=== PATIENT | male | born 1975 | race Caucasian/White ===

== ENCOUNTER 2017-01-28 17:32 | Emergency (ER) | payer OTHER ==
--- NOTE | 2017-01-28 17:38 | PDOC ---
History of Present Illness - History of Present Illness Initial Comments: 01/28/17 18:35 Chief complaint: chest pain for a week The patient is a 41 year old male with a past medical history of acid reflux, presents to the emergency department with a complaint of one week of chest pain. Keny reports he had an episode of chest pain a month ago but it resolved on its own. The pain over the past week has returned. The pain is intermittent. Patients pain is on the left side of the chest. The pain is reported to be mild, lasting for seconds. Patient additionally reports the pain left arm with numbness/tingling . Patient denies associated shortness of breath or diaphoresis. Deneis any nausea or vomiting. Denies abdominal pain. Patient reports some life stressors Social drinker, denies recreational drugs Denies past hospitalizations or surgeries Cardiac risks: 2/5 Denies history of hypertension, high cholesterol or diabetes. Patient reports social smoking, binging on 6-8 cigarettes 2 days a week Patient's brother is 46 and has a history of cardiac stents <Jake Hewitt - Last Filed: 01/28/17 18:35> <Sg Priest - Last Filed: 01/28/17 19:44> - General Chief Complaint: Chest Pain Stated Complaint: chest pain x 1 week Time Seen by Provider: 01/28/17 17:36 Past History <Jake Hewitt - Last Filed: 01/28/17 18:35> - Psycho/Social/Smoking Cessation Hx Anxiety: No Suicidal Ideation: No Smoking History: Current some day smoker Have you smoked in the past 12 months: Yes 'Breaking Loose' booklet given: 08/15/16 Hx Alcohol Use: Yes Drug/Substance Use Hx: No Substance Use Type: Alcohol <Sg Priest - Last Filed: 01/28/17 19:44> - Past Medical History Allergies/Adverse Reactions: Allergies Allergy/AdvReac Type Severity Reaction Status Date / Time No Known Allergies Allergy Verified 01/28/17 17:33 Home Medications: Ambulatory Orders NK [No Known Home Medication] 08/14/16 Review of Systems - Review of Systems Able to Perform ROS?: Yes Comments:: 01/28/17 18:35 CONSTITUTIONAL: Absent: Fever, Chills, Diaphoresis, Generalized Weakness, Malaise, Loss of Appetite HEENT: Absent: Rhinorrhea, Nasal Congestion, Throat Pain, Throat Swelling, Difficulty Swallowing, Mouth Swelling, Ear Pain, Eye Pain, Visual Changes CARDIOVASCULAR: Present: Chest pain Absent: Syncope, Palpitations, Irregular Heart Rate, Lightheadedness, Peripheral Edema RESPIRATORY: Absent: Cough, Shortness of Breath, SOB with Exertion, Orthopnea, Wheezing, Stridor, Hemoptysis GASTROINTESTINAL: Absent: Abdominal pain, Abdominal Distension, Nausea, Vomiting, Diarrhea, Constipation, Melena, Hematochezia GENITOURINARY: Absent: Dysuria, Frequency, Urgency, Hesitancy, Flank Pain, Genital Pain MUSCULOSKELETAL: Absent: Myalgia, Arthralgia, Joint Swelling, Back pain, Neck Pain SKIN: Absent: Rash, Itching, PalloR HEMEATOLOGIC/IMMUNOLOGIC: Absent: Easy Bleeding, Easy Bruising, Lymphadenopathy, Frequent infections ENDOCRINE: Absent: Unexplained Weight Gain, Unexplained Weight Loss, Heat Intolerance, Cold Intolerance NEUROLOGIC: Present: Left arm tingling Absent: Headache, Focal Weakness, Vertigo, Lightheadedness, Unsteady Gait, Seizure, Mental Status Changes, Incontinence PSYCHIATRIC: Absent: Anxiety, Depression Is the patient limited Georgian proficient: No <Jake Hewitt - Last Filed: 01/28/17 18:35> *Physical Exam - Vital Signs Last Vital Signs Temp Pulse Resp BP Pulse Ox 97.9 F 70 18 120/68 100 01/28/17 17:32 01/28/17 17:32 01/28/17 17:32 01/28/17 17:32 01/28/17 17:32 - Physical Exam Comments: 01/28/17 18:36 GENERAL: The patient is awake, alert, and fully oriented, in no acute distress. HEAD: Normal with no signs of trauma. EYES: Pupils equal, round and reactive to light, extraocular movements intact, sclera anicteric, conjunctiva clear. ENT: Ears normal, nares patent, oropharynx clear without exudates. Moist mucous membranes. NECK: Normal range of motion, supple without lymphadenopathy, JVD, or masses. LUNGS: Breath sounds equal, clear to auscultation bilaterally. No wheezes, and no crackles. HEART: Regular rate and rhythm, normal S1 and S2 without murmur, rub or gallop. ABDOMEN: Soft, nontender, normoactive bowel sounds. No guarding, no rebound. No masses. EXTREMITIES: Normal range of motion, no edema. No clubbing or cyanosis. No cords , erythema, or tenderness. NEUROLOGICAL: Cranial nerves II through XII grossly intact. Normal speech, normal gait. PSYCH: Normal mood, normal affect. SKIN: Warm, Dry, normal turgor, no rashes or lesions noted. <Jake Hewitt - Last Filed: 01/28/17 18:35> Heart Score/ECG Review - ECG Intrepretation Comment:: 01/28/17 19:39 Twelve-lead EKG reviewed by me. The rhythm is normal sinus rhythm at 69 bpm. The axis is normal. The intervals are normal. There is borderline LVH by voltage. There is T wave flattening in lead aVL. There are no old EKGs for comparison. Impression: Normal sinus rhythm with borderline LVH with lateral T-wave flattening. <Sg Priest - Last Filed: 01/28/17 19:44> ED Treatment Course - LABORATORY CBC & Chemistry Diagram: 01/28/17 18:45 01/28/17 18:45 <Sg Pirest - Last Filed: 01/28/17 19:44> Medical Decision Making - Medical Decision Making 01/28/17 19:40 Patient is a 41-year-old man with a history of smoking and early-onset coronary disease in the family. He does not have hypertension, hyperlipidemia, or diabetes. He presents complaining of intermittent, brief episodes of mild chest discomfort lasting for seconds. He also says that he sometimes feels some numbness in his left arm. The symptoms are not exertional. They do not last for any more than seconds. There is no nausea or vomiting. There is no diaphoresis. There is no shortness of breath. On examination, the lungs are clear and the heart is normal. Twelve-lead EKG shows borderline LVH with T-wave flattening in lead aVL. There are no old old EKGs for comparison. Chest x-ray on my preliminary review is normal. Initial impression: Very atypical chest pain, but in a patient with positive coronary risk factors. He denies cocaine abuse or exertional symptoms. Laboratory studies ordered. If cardiac enzymes remain negative, patient can be discharged with cardiology follow-up for stress testing. Patient has a heart score of 2 points, putting him in the low risk category. Patient endorsed to Dr. Ambrosio Lee at change of shift pending cardiac enzymes. Plan is to discharge the patient if his enzymes are all normal , With outpatient follow-up. Laboratory Tests 01/28/17 18:45 WBC 9.4 RBC 5.33 Hgb 15.9 Hct 47.2 MCV 88.4 MCHC 33.7 RDW 12.8 Plt Count 272 MPV 7.7 Neutrophils % 55.1 Lymphocytes % 32.8 Monocytes % 5.4 Eosinophils % 5.9 H Basophils % 0.8 CBC is normal. Other labs are pending at the time of signout. <Sg Priest - Last Filed: 01/28/17 19:44> *DC/Admit/Observation/Transfer - Attestations Scribe Attestion: 01/28/17 18:36 Documentation prepared by Jake Hewitt, acting as medical technical writer for Sg Priest MD <Jake Hewitt - Last Filed: 01/28/17 18:35> <Sg Priest - Last Filed: 01/28/17 19:44> Diagnosis at time of Disposition: Atypical chest pain - Discharge Dispostion Condition at time of disposition: Stable
[2017-01-28 17:40] VITALS: BP 120/68; PULSE 70; TEMP 97.9; BMI 29.0
[2017-01-28 19:08] LABS: BASOPHIL 0.8 % (0-2.0); EOSINOPHIL 5.9 % (0-4.5); MCH 29.8 pg (25.7-33.7); MCHC 33.7 g/dl (32.0-35.9); MEAN CELL VOLUME 88.4 fl (80-96); MEAN PLT VOLUME 7.7 fl (7.5-11.1); NEUTROPHILS 55.1 % (42.8-82.8); PLATELET COUNT 272 K/MM3 (134-434); RDW 12.8 % (11.9-15.9); WHITE BLOOD COUNT 9.4 K/mm3 (4.0-10.8)
[2017-01-28 19:27] LABS: ALBUMIN 4.3 g/dl (3.5-5.0); ALK PHOS 58 U/L (32-92); ANION GAP 7 (8-16); BILIRUBIN,TOTAL 0.4 mg/dl (0.2-1.0); CALCIUM 9.4 mg/dl (8.4-10.2); CO2 27 mmol/L (22-28); COCKROFT - GAULT 112.82; CREATININE 1.1 mg/dl (0.6-1.3); GLUCOSE,RANDOM 89 mg/dl (74-106); SGOT/AST 23 U/L (10-42); SGPT/ALT 21 U/L (10-40); TOT PROT 7.2 g/dl (6.4-8.3)
[2017-01-28 19:28] LABS: CPK(DFH) 97 IU/L (38-174)
--- NOTE | 2017-01-28 19:52 | PDOC ---
*Physical Exam - Vital Signs Last Vital Signs Temp Pulse Resp BP Pulse Ox 97.9 F 70 18 120/68 100 01/28/17 17:32 01/28/17 17:32 01/28/17 17:32 01/28/17 17:32 01/28/17 17:32 ED Treatment Course - LABORATORY CBC & Chemistry Diagram: 01/28/17 18:45 01/28/17 18:45 - ADDITIONAL ORDERS Additional order review: 01/28/17 18:45 RBC 5.33 MCV 88.4 MCHC 33.7 RDW 12.8 MPV 7.7 Neutrophils % 55.1 Lymphocytes % 32.8 Monocytes % 5.4 Eosinophils % 5.9 H Basophils % 0.8 Progress Note - Progress Note Progress Note: Care of this patient was transferring from Dr. Mendez at 1900 hrs. Patient comes in complaining of very atypical chest pain. Patient does have multiple risk factors including a strong family history of coronary artery disease at a young age. Patient has an initial cardiac enzymes are pending. Plan is that we will repeat cardiac enzymes in 3 hours and if still negative patient will be discharged. Patient will also have a repeat EKG at the time of the second set of enzymes. 20:15 Patient's troponin and workup was negative. Patient's heart score is 2. Patient does not want to wait for second cardiac enzymes. So he is signing out AGAINST MEDICAL ADVICE. Patient understands the risk obvious small but this could be cardiac related and could result in an adverse outcome such as a heart attack or even . Patient understands and will follow-up with his primary care next week. *DC/Admit/Observation/Transfer Diagnosis at time of Disposition: Atypical chest pain - Discharge Dispostion Disposition: HOME Condition at time of disposition: Stable Admit: No - Referrals Referrals: Vasyl Falcon [Non Staff, Medical] - - Patient Instructions Printed Discharge Instructions: DI for Atypical Chest Pain Additional Instructions: Your signing out AGAINST MEDICAL ADVICE, by signing out AGAINST MEDICAL ADVICE you accept the risk of the result of any potential adverse outcome such as a heart attack or . It is important that you follow-up with your doctor tomorrow and return if you have any worsening symptoms or for any reason whatsoever. Return to the emergency department immediately with ANY new, persistent or worsening symptoms. Continue any medications as previously prescribed by your physician. You should follow up with your primary doctor as soon as possible regarding today's emergency department visit. . Please make sure your doctor reviews the results of your emergency evaluation. Thank you for coming to the Emergency Department today for your care. It was a pleasure to see you today. Please note that your evaluation is INCOMPLETE until you follow-up with your doctor.
[2017-01-28 19:56] LABS: TROPONIN I (DFP) < 0.03 ng/ml (0.03-0.50)
--- NOTE | 2017-01-29 13:00 | EKG ---
Test Reason : Blood Pressure : / mmHG Vent. Rate : 069 BPM Atrial Rate : 069 BPM P-R Int : 122 ms QRS Dur : 086 ms QT Int : 362 ms P-R-T Axes : 025 -04 038 degrees QTc Int : 387 ms NORMAL SINUS RHYTHM MINIMAL VOLTAGE CRITERIA FOR LVH, MAY BE NORMAL VARIANT ABNORMAL ECG NO PREVIOUS ECGS AVAILABLE Confirmed by JOCELYN HERNÁNDEZ MD ([id number]) on 01/29/2017 1:00:13 PM Referred By: ADRIANA PULIDO Confirmed By:JOCELYN HERNÁNDEZ MD
== END 2017-01-28 20:21 | disposition home or self-care (01) ==
LOC: FER 17:32
DX: R07.89 Other chest pain (principal); K21.9 Gastro-esophageal reflux disease without esophagitis; F17.210 Nicotine dependence, cigarettes, uncomplicated
CPT/HCPCS: 36415; 71020-TC; 80053; 82550; 84484; 85025; 93005; 99283-25

== ENCOUNTER 2020-07-31 12:17 | Emergency (ER) | payer OTHER ==
--- OUTSIDE RECORDS SUMMARY | 2020-07-31 12:28 | XMS ---
:1975 Author Organization [facility] Support Name Relationship Address Phone SE Unavailable Unavailable Unavailable JOSÉ MIGUEL [place] [address] [place] [address] Re-disclosure Warning The records that you are about to access may contain information from federally- assisted alcohol or drug abuse programs. If such information is present, then the following federally mandated warning applies: This information has been disclosed to you from records protected by federal confidentiality rules (42 CFR part 2). The federal rules prohibit you from making any further disclosure of this information unless further disclosure is expressly permitted by the written consent of the person to whom it pertains or as otherwise permitted by 42 CFR part 2. A general authorization for the release of medical or other information is NOT sufficient for this purpose. The Federal rules restrict any use of the information to criminally investigate or prosecute any alcohol or drug abuse patient.The records that you are about to access may contain highly sensitive health information, the redisclosure of which is protected by Article 27-F of the [facility] Public Health law. If you continue you may haveaccess to information: Regarding HIV / AIDS; Provided by facilities licensed or operated by the [facility] Office of Mental Health; or Provided by the [facility] Office for People With Developmental Disabilities. If such information is present, then the following [facility] mandated warning applies: This information has been disclosed to you from confidential records which are protected by state law. State law prohibits you from making any further disclosure of this information without the specific written consent of the person to whom it pertains, or as otherwise permitted by law. Any unauthorized further disclosure in violation of state law may result in a fine or long-term sentence or both. A general authorization for the release of medical or other information is NOT sufficient authorization for further disclosure. Insurance Providers Payer name Policy type / Policy ID Covered Covered democrat's Policy Plan Coverage type democrat ID relationship to [place] Information [place] [employer] [facility] [id number] [place] [id number] SELF PAY 00 Self 00 [employer] [id number] Self [id number] [email or web address]
[2020-07-31 12:50] VITALS: BP 146/90; PULSE 67; TEMP 98.5; BMI 26.6
--- NOTE | 2020-07-31 13:03 | PDOC ---
History of Present Illness - General Chief Complaint: Back Pain Stated Complaint: BACK PAIN Time Seen by Provider: 07/31/20 12:21 - History of Present Illness Initial Comments: 07/31/20 13:01 45 M with no PMH presents to ED with L lower back pain x 2 weeks. Pt states he was lifting heavy boxes 2 weeks ago. Did not feel any pain immediately but has had pain in his L lower back that is worse upon awakening in the morning. Pain r adiates down his L posterior leg. Pt notes the pain is worse with bending over and sitting. Relieved by standing and walking. Denies any numbness/weakness in his legs. No incontinence or saddle anesthesia. Past History - Medical History Allergies/Adverse Reactions: Allergies Allergy/AdvReac Type Severity Reaction Status Date / Time No Known Allergies Allergy Verified 07/31/20 12:20 Home Medications: Ambulatory Orders NK [No Known Home Medication] 08/14/16 COPD: No Kidney Stones: Yes - Psycho-Social/Smoking History Smoking History: Current every day smoker Have you smoked in the past 12 months: Yes Number of Cigarettes Smoked Daily: 4 Information on smoking cessation initiated: Yes 'Breaking Loose' booklet given: 01/28/17 - Substance Abuse Hx (Audit-C & DAST Scrn) How often the patient has a drink containing alcohol: 2-4 times / month How often the patient has six or more drinks on one occasion: Never Score: In Men: 4 or > Positive; In Women: 3 or > Positive: 2 Screen Result (Pos requires Nsg. Audit-10AR): Negative In the last yr the pt used illegal drug/Rx for NonMed reason: No Score: Yes response is considered Positive: 0 Screen Result (Positive result requires Nsg. DAST-10): Negative Review of Systems - Review of Systems Comments:: 07/31/20 13:02 "GENERAL/CONSTITUTIONAL: No fever or chills. No weakness. HEAD, EYES, EARS, NOSE AND THROAT: No change in vision. No ear pain or discharge. No sore throat. CARDIOVASCULAR: No chest pain, no shortness of breath, no loss of consciousness RESPIRATORY: No cough, wheezing, or hemoptysis. GASTROINTESTINAL: No nausea, vomiting, diarrhea or constipation. GENITOURINARY: No dysuria, frequency, or change in urination. MUSCULOSKELETAL: + L lower back pain SKIN: No rash NEUROLOGIC: No vertigo, no change in strength/sensation. ENDOCRINE: No increased thirst. No abnormal weight change. HEMATOLOGIC/LYMPHATIC: No anemia, easy bleeding, or history of blood clots. ALLERGIC/IMMUNOLOGIC: No hives or skin allergy. *Physical Exam - Vital Signs Last Vital Signs Temp Pulse Resp BP Pulse Ox 98.5 F 67 15 146/90 98 07/31/20 12:19 07/31/20 12:19 07/31/20 12:19 07/31/20 12:19 07/31/20 12:19 - Physical Exam 07/31/20 13:03 "GENERAL: Awake, alert, and fully oriented, in no acute distress. HEAD: No signs of trauma EYES: PERRLA, EOMI, sclera anicteric, conjunctiva clear ENT: Auricles normal inspection, hearing grossly normal, nares patent, oropharynx clear without exudates. Moist mucosa NECK: Nontender, no stepoffs, Normal ROM, supple, no lymphadenopathy, JVD, or masses LUNGS: Breath sounds equal, clear to auscultation bilaterally. No wheezes, and no crackles HEART: Regular rate and rhythm, normal S1 and S2, no murmurs, rubs or gallops ABDOMEN: Soft, nontender, normoactive bowel sounds. No guarding, no rebound. No masses EXTREMITIES: Normal range of motion, no edema. No clubbing or cyanosis. No cords, erythema, or tenderness BACK: + Mild L paraspinal TTP, no midline tenderness, no stepoffs NEUROLOGICAL: Cranial nerves II through XII intact. 5/5 strength and sensation in all extremities, Normal speech, normal gait, normal cerebellar function SKIN: Warm, Dry, normal turgor, no rashes or lesions noted. ED Treatment Course - ADDITIONAL ORDERS Additional order review: Laboratory Results 07/31/20 12:30 Urine Color Yellow Urine Appearance Clear Urine pH 5.5 Urine Protein Negative Urine Glucose (UA) Negative Urine Ketones Negative Urine Blood Trace-intact Urine Nitrite Negative Urine Bilirubin Negative Urine Urobilinogen 0.2 Ur Leukocyte Esterase Negative Medical Decision Making - Medical Decision Making 07/31/20 13:03 45 M with L lower back pain. NO neuro deficits on exam. Likely sciatica. - UA to r/o renal colic 07/31/20 13:10 UA with trace blood but no RBCs on micro Unlikely to be nephrolithiasis Pt is well appearing, with normal vitals. Clinically stable for DC at this time. I discussed the physical exam findings, ancillary test results and final diagnoses with the patient. I answered all of the patient's questions. The patient was satisfied with the care received and felt comfortable with the discharge plan and treatment plan. The patient agrees to follow up with the primary care physician within 24-72 hours. Discharge - Discharge Information Problems reviewed: Yes Clinical Impression/Diagnosis: Lower back pain, Sciatica Condition: Good Disposition: HOME - Follow up/Referral Referrals: Vasyl Falcon [Primary Care Provider] - Jose García DO [Staff Physician] - - Patient Discharge Instructions Patient Printed Discharge Instructions: DI for Sciatica Additional Instructions: Your pain is likely due to sciatic nerve pain. Take naproxen 500mg twice daily as prescribed. Be sure to take it with food. If you experience worsening pain, weakness or numbness in your leg, difficulty controlling your bowel or bladder, or any other concerning symptoms, return to the ER immediately. Otherwise, follow up with an orthopedic surgeon for further management of your pain. Call the number provided to make an appointment. - Post Discharge Activity
[2020-07-31 13:04] LABS: URINE MUCUS 1+
== END 2020-07-31 13:23 | disposition home or self-care (01) ==
LOC: FER 12:17
DX: M54.40 Lumbago with sciatica, unspecified side (principal)
CPT/HCPCS: 81003; 81015; 99284-25

== ENCOUNTER 2024-06-05 03:39 | Emergency (ER) | payer OTHER ==
[2024-06-05 03:47] VITALS: RESP 16; TEMP 97.7; BMI 27.9
[2024-06-05 06:06] VITALS: BP 128/77; PULSE 55
== END 2024-06-05 06:23 | disposition home or self-care (01) ==
LOC: FER 03:39
DX: R07.89 Other chest pain (principal)
CPT/HCPCS: 36415; 82550; 84484; 93005; 99284-25